=== PATIENT | male | born 2000 | race Two or more races ===

== ENCOUNTER → 2020-06-16 | Outpatient (CLI) | payer OTHER ==
--- NOTE | 2020-06-20 06:00 | NUR ---
PATIENT CALLED REQUESTING TO SEE IF HIS COVID RESULTS ARE BACK STATES THAT HE WAS ADVISED THAT THE HOSPITAL WOULD CALL HIM AND THEY HAVE NOT. ADVISED THE PATIENT THAT THE RESULTS HAVE NOT RETURNED YET TO TRY BACK TUESDAY
== END | disposition home or self-care (01) ==
LOC: LAB 07:24
PROVIDERS: ATTEND Nurse Practitioner Family
DX: Z03.818 Encounter for observation for suspected exposure to other biological agents ruled out (principal)